=== PATIENT | male | born 1940 | race Caucasian/White ===

== ENCOUNTER → 2019-12-01 17:40 | Outpatient (CLI) | payer MEDICARE, SELFPAY ==
--- NOTE | 2019-12-01 17:48 | RAD_ITS ---
STUDY: X-RAY - LUMBAR SPINE REASON FOR EXAM: Male, 79 years old. back pain and stiffness TECHNIQUE: 4 view(s) of the lumbar spine were obtained. COMPARISON: None FINDINGS: There is straightening of the normal lumbar lordosis. No visualized acute fracture. A chronic appearing compression deformity of L3 vertebral body is present with 30-40% loss of original height. Moderate asymmetric multilevel disc space narrowing is seen throughout the lumbar spine in addition to bulky anterior and paravertebral osteophytes. Moderate levoscoliosis is present. There is atherosclerotic calcification of the abdominal aorta without a demonstrated aneurysm. RAD/Lumbar Spine 2 or 3 Views IMPRESSION: Degenerative changes of the spine, as detailed above. Electronically Signed: Mihai Carreon MD at 22:49 EDT , Service support ,
--- NOTE | 2019-12-01 18:00 | RAD_ITS ---
STUDY: X-RAY - CERVICAL SPINE REASON FOR EXAM: Male, 79 years old. neck pain with movement TECHNIQUE: 8 view(s) of the cervical spine were obtained. COMPARISON: None FINDINGS: Normal anterior atlantoaxial articulation. Normal odontoid process. There is straightening of the normal cervical lordosis. Moderate to severe disc space narrowing is seen at all visualized levels. Mild endplate degenerative changes and spurring is present. No visualized fractures. The soft tissue structures are unremarkable. RAD/Cerv Spine 2 or 3 Views IMPRESSION: Multilevel degenerative changes Electronically Signed: Mihai Carreon MD at 22:48 EDT , Service support ,
== END ==
LOC: RAD 17:47
PROVIDERS: Referring Provider Anesthesiology Pain Medicine; Visit Provider Anesthesiology Pain Medicine
DX: M54.9 Dorsalgia, unspecified (principal); M54.2 Cervicalgia
CPT/HCPCS: 72040; 72100; 94799

== ENCOUNTER → 2020-09-07 17:25 | Outpatient (CLI) | payer MEDICARE, MEDICAID, SELFPAY | PROVIDERS: Referring Provider Dermatology; Visit Provider Dermatology | DX: L02.811 Cutaneous abscess of head [any part, except face] (principal); L72.8 Other follicular cysts of the skin and subcutaneous tissue | CPT/HCPCS: 87070; 87186; 87205 ==

== ENCOUNTER 2021-04-26 05:40 | Day surgery (SDC) | payer MEDICARE, MEDICAID, SELFPAY ==
[2021-04-26] VITALS (7 sets, daily range): BP systolic 95–125; BP diastolic 53–73; PULSE 58–74; RESP 12–98; TEMP 35.9–36.4; O2SAT 12–100; BMI 27.1
[2021-04-26 06:41] LABS: Bedside Glucose 86 mg/dL (70-110)
[2021-04-26] MEDS: Lactated Ringers 1,000 ML 15 ML IV (06:42)
--- NOTE | 2021-04-26 06:53 | HP.PCM_ITS ---
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 Required: No Is patient in pain?: No Allergies No Known Allergies Allergy (Verified 04/05/21 09:50) Medications acetaminophen 325 mg capsule 650 mg PO Q6H PRN cap 10/05/20 [History Confirmed 04/05/21] apixaban 5 mg tablet 5 mg PO BID tab 10/05/20 [History Confirmed 04/05/21] aspirin 81 mg tablet,delayed release 81 mg PO DAILY 10/05/20 [History Confirmed 04/05/21] atorvastatin 80 mg tablet tablet PO 10/05/20 [History Confirmed 04/05/21] calcium carb-vit D3-minerals 600 mg calcium-400 unit tablet 1 tab PO DAILY tab 10/05/20 [History Confirmed 04/05/21] carbamide peroxide 6.5 % ear drops 5 drp OTIC (EAR) Q12H 10/05/20 [History Confirmed 04/05/21] cholecalciferol (vitamin D3) 25 mcg (1,000 unit) capsule 25 mcg PO DAILY 10/05/20 [History Confirmed 04/05/21] diltiazem HCl 240 mg capsule,extended release 24 hr cap PO 10/05/20 [History Confirmed 04/05/21] docusate sodium 100 mg capsule 100 mg PO BID 10/05/20 [History Confirmed 04/05/21] furosemide 40 mg tablet tablet PO 10/05/20 [History Confirmed 04/05/21] gabapentin 300 mg capsule cap PO 10/05/20 [History Confirmed 04/05/21] loratadine 10 mg tablet 10 mg PO DAILY 10/05/20 [History Confirmed 04/05/21] megestrol 400 mg/10 mL (40 mg/mL) oral suspension ml PO 10/05/20 [History Confirmed 04/05/21] metoprolol tartrate 50 mg tablet tablet PO 10/05/20 [History Confirmed 04/05/21] mirtazapine 7.5 mg tablet tablet PO 10/05/20 [History Confirmed 04/05/21] multivitamin 1 tab PO DAILY 10/05/20 [History Confirmed 04/05/21] omeprazole 40 mg capsule,delayed release cap PO 10/05/20 [History Confirmed 04/05/21] oxycodone-acetaminophen 5 mg-325 mg tablet tablet PO 10/05/20 [History Confirmed 04/05/21] potassium chloride 10 mEq tablet,extended release ea PO 10/05/20 [History Confirmed 04/05/21] sertraline 25 mg tablet 25 mg PO DAILY tab 10/05/20 [History Confirmed 04/05/21] [facility] Medical History AAA (abdominal aortic aneurysm) Acquired lymphedema Acute respiratory failure with hypoxia Alzheimer's dementia Atrial fibrillation BPH (benign prostatic hyperplasia) Dementia Diabetes mellitus Encephalopathy Hearing loss History of TIA (transient ischemic attack) Hyperlipidemia Insomnia Muscle weakness Personal history of COVID-19 PVD (peripheral vascular disease) Seasonal allergic rhinitis Sleep apnea Spinal stenosis Social History Smoking Status: Current some day smoker HPI HPI HPI: YAA MENG, is a 80 M who presents to the office today for painful lesion of the right upper back. Patient reports it was very red and then it drained and is cracking still operator and draining some dark fluid. This is been bothering him for several months. ROS General General: No weight change or fatigue HEENT HEENT: No difficulty swallowing Endo Endocrine: No thyroid disease Skin Additional Details: Painful lesion of the right upper back Musc Musculoskeletal: No back problems or arthritis Cardio Cardiovascular: No pacemaker, heart disease, atrial fibrillation, high blood pressure, heart attack, heart stent, palpitations or chest pain Psych Psychiatric: No depression or anxiety Resp Respiratory: No shortness of breath, No cough, No COPD, No asthma and No emphysema Gastro Gastrointestinal: No abdominal pain, No nausea or vomiting, No diarrhea, No constipation, No blood in stool, No acid reflux, No hemorrhoids, No ulcers, No gallbladder problem and No black,tarry stools [place] Hematologic: No blood thinners Exam Const General: cooperative Orientation: alert and oriented x3 HENMT Head: normal to inspection Neck Neck: normal visual inspection and full ROM Chest Chest palpation & inspection: normal inspection of the chest Resp Effort & Inspection: normal respiratory effort Auscultation: clear to auscultation bilaterally Cardio Rate: regular rate Rhythm: regular rhythm GI Inspection: non-distended Palpation: soft and nontender Skin General: no rashes or lesions noted Other: Skin lesion on the right upper back Neuro General: patient alert and patient oriented x3 Extrem General: full ROM Psych Appearance: grossly normal Mental Status: mental status grossly normal Assessment and Plan Assessment and Plan (1) Sebaceous cyst: Status: Acute Plan - Dr. Henrik Casillas MD: The patient has a firm tender area in the right upper back which is likely a sebaceous cyst that was infected. There does not appear to be infection at this time but there is old hematoma material draining from it. Patient is on Eliquis I would like him to stop for 2 days prior to the procedure and I will remove this in the operating room as it is quite large and may require cauterization. I discussed this with the patient and his son. I discussed the risks include modality to bleeding, infection, recurrence. Henrik Casillas MD Pager: [facility] [address] [place] [address], [address] [place] [address] Office: I have re-examined the patient. There are no clinical changes since date of exam.
--- NOTE | 2021-04-26 07:30 | CYST_PTH ---
PATIENT: YAA MENG LOC: [facility] [place] U#:[id number] AGE/SX: 80/M ROOM: RE04/26/[address]: Dr. Henrik Casillas MD : 1940 BED: DIS: 04/26/2021 SPEC #: [id number] RECD: 04/26/21 11:24 STATUS: JACQUI REFernando #: [id number] NEDRA: 04/26/21 07:[address]: Henrik Casillas DEPT: SURGICAL PATHOLOGY RECD BY: Marina Dawson ENTERED: 04/26/21 12:26 SP TYPE: Cyst OTHR DR: Dr. Francesco Melgoza MD Tissues: CYST Procedures: Surgery Specimen Level III HEADER OPERATION: Excision cyst back/shoulder PRE-OP DIAGNOSIS: Sebaceous cyst TISSUE SUBMITTED: Sebaceous cyst MICROSCOPIC DIAGNOSIS Sebaceous cyst, left cyst back/shoulder, excision: Pieces of skin and fibroadipose tissue with chronic inflammation, foreign body giant reaction and changes consistent with ruptured epidermal inclusion cyst. JUAN C:kim 04/27/2021 MICROSCOPIC DESCRIPTION Slides are reviewed. GROSS DESCRIPTION Received in fixative is one container labeled with the patient's name and designated sebaceous cyst. The specimen consists of multiple pieces of skin and soft tissue that in aggregate measure 2 x 2 x 0.5 cm. The larger pieces are bisected. The entire specimen is submitted in one cassette. / JUAN C:kim 04/26/21 TC:5 [facility]: [id number]
[2021-04-26] MEDS: Lidocaine 1% /Epi 1:100 (20ml) 20 ML Vial (07:40)
--- NOTE | 2021-04-26 08:10 | PCM.OPRPT ---
Problems Associated Problem List Diagnoses (1) Infected sebaceous cyst of skin: Report of Operation Date of Procedure: 04/26/21 Pre-Operative Diagnosis: Infected sebaceous cyst of the back Post-Operative Diagnosis: Same Surgery/Procedure Performed:: Excision of infected sebaceous cyst of the back Specimen's removed: Sebaceous cyst Description of Procedure: Patient was the operating room and MAC anesthesia was induced and the patient was rolled to his left side. The right back was prepped and draped in usual sterile fashion and the area that was draining pus was marked. The incision was injected with local anesthetic and incised with a scalpel. The cavity was reached and sharply excised. It was sent for pathology. The cavity was irrigated copiously and hemostasis was obtained using electrocautery. The incision was very loosely closed with two 3-0 Vicryl sutures to allow drainage. Dressing was applied. Admit VTE Documentation VTE Mechan Device Prophylaxis: SCD's
--- NOTE | 2021-04-26 08:12 | EX.PCM.DISCH ---
Discharge Instructions Procedure General Surgery Diet Discharge Diet: Light diet - advance as tolerated Activity Discharge Activity: May Shower May shower in (days): 1 Lifting Restrictions: none Additional Activity Instructions:: Resume blood thinners on Saturday Dressing / Incision Call your doctor if your incision/area has: Sudden Increased Bleeding, Increased Pain/ Swelling, Increased Redness, Foul Smelling Discharge and Swelling at the incision site Call your doctor if you observe: Fever of 101 or Higher Suture Line Care: Avoid Pulling/Pushing and Avoid Pinching/Bending Change Dressing in: 1 day Cleanse incision/area with: Soap & Water Follow Up Care Please Follow Up With: Henrik Casillas MD When: Please call to schedule 2 week follow up appointment. [phone] Test Results: Test results from this visit will be discussed in further detail at your follow-up appointment, if applicable. Discharge Plan Admission Attending Provider: Henrik Casillas Primary Care Provider: Francesco Melgoza Discharge Orders/Prescriptions Prescriptions: No Action atorvastatin 80 mg tablet 80 mg PO QHS RF: 0 diltiazem HCl 240 mg capsule,extended release 24hr 240 mg PO DAILY RF: 0 Eliquis 5 mg tablet 5 mg PO BID RF: 0 furosemide 40 mg tablet 40 mg PO DAILY RF: 0 gabapentin 300 mg capsule 300 mg PO QHS RF: 0 metoprolol tartrate 50 mg tablet 50 mg PO BID RF: 0 mirtazapine 7.5 mg tablet 7.5 mg PO QHS RF: 0 omeprazole 40 mg capsule,delayed release(DR/EC) 40 mg PO DAILY RF: 0 oxycodone-acetaminophen 5-325 mg tablet 0.5 tablet PO Q4H RF: 0 potassium chloride 10 mEq tablet extended release 60 meq PO BID RF: 0 sertraline 25 mg tablet 25 mg PO DAILY RF: 0 acetaminophen [Tylenol] 325 mg capsule 650 mg PO Q6H PRN (Reason: Pain) RF: 0 cholecalciferol (vitamin D3) 25 mcg (1,000 unit) capsule 25 mcg PO DAILY RF: 0 aspirin 81 mg tablet,delayed release (DR/EC) 81 mg PO DAILY RF: 0 calcium carbonate-vit D3-min 600 mg calcium- 400 unit tablet 1 tab PO DAILY RF: 0 loratadine [Claritin] 10 mg tablet 10 mg PO DAILY RF: 0 multivitamin Tablet 1 tab PO DAILY RF: 0 docusate sodium 100 mg capsule 100 mg PO BID RF: 0 sennosides [senna] 8.6 mg Tablet 8.6 mg PO BID RF: 0 ammonium lactate 12 % Lotion 1 applic TOPICAL DAILY RF: 0 polyethylene glycol 3350 [Miralax] 17 gram Powder In Packet 17 g PO DAILY RF: 0 melatonin 10 mg Capsule 10 mg PO QHS RF: 0 Referrals / Follow Up: Francesco Melgoza MD [Primary Care Provider] - Disposition Disposition (needs filled in before D/C Order can be placed): Home, Self Care
== END 2021-04-26 09:26 | disposition home or self-care (01) ==
LOC: SDC 05:45 → AC 05:45
PROVIDERS: PCP Internal Medicine; Referring Provider Surgery; Visit Provider Surgery
PROC: (CPT 11403; principal; 2021-04-26 07:20)
DX: L72.3 Sebaceous cyst (principal); L08.9 Local infection of the skin and subcutaneous tissue, unspecified; G30.9 Alzheimer's disease, unspecified; F02.80 Dementia in other diseases classified elsewhere, unspecified severity, without behavioral disturbance, psychotic disturbance, mood disturbance, and anxiety; N40.0 Benign prostatic hyperplasia without lower urinary tract symptoms; I48.91 Unspecified atrial fibrillation; E78.5 Hyperlipidemia, unspecified; Z86.16 Personal history of COVID-19; E11.51 Type 2 diabetes mellitus with diabetic peripheral angiopathy without gangrene; Z79.899 Other long term (current) drug therapy; Z79.01 Long term (current) use of anticoagulants; Z79.82 Long term (current) use of aspirin; F17.200 Nicotine dependence, unspecified, uncomplicated
CPT/HCPCS: 11403; 82962; 88304; J7120